=== PATIENT | male | born 1965 | race Caucasian/White ===

== ENCOUNTER 2018-01-30 14:59 | Outpatient (CLI) | payer OTHER | END 2018-01-30 15:00 | disposition home or self-care (01) | LOC: SC 14:59 | PROVIDERS: ATTEND Internal Medicine Pulmonary Disease | DX: G47.33 Obstructive sleep apnea (adult) (pediatric) (principal) | CPT/HCPCS: 99203; 99212 ==

== ENCOUNTER 2020-09-27 20:00 | Outpatient (CLI) | payer OTHER | END 2020-09-27 20:01 | disposition EMS.NT | LOC: EMS 20:00 | DX: S61.250A Open bite of right index finger without damage to nail, initial encounter (principal); Y04.2XXA Assault by strike against or bumped into by another person, initial encounter ==

== ENCOUNTER 2020-09-27 21:58 | Emergency (ER) | payer OTHER ==
[2020-09-27 22:21] VITALS: BP 207/100
--- OUTSIDE RECORDS SUMMARY | 2020-09-27 22:30 | EXTERNAL MEDICAL SUMMARY RPT | Continuity of Care Document ---
:1965 Demographics Phone Unavailable Preferred Language Unknown Marital Status Unknown Temple Affiliation Unknown Race Unknown Ethnic Group Unknown Author Organization [facility] Address [address] [place] [address] Phone Allergies Encounters Medications Problems Results
[2020-09-28] MEDS ORDERED: DOXYCYCLINE 100 MG TABLET PO STA (00:39)
[2020-09-28] MEDS ORDERED: metroNIDAZOLE 250 MG TABLET PO STA (00:39)
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
== END 2020-09-28 00:50 | disposition home or self-care (01) ==
LOC: ED 21:58
DX: S61.250A Open bite of right index finger without damage to nail, initial encounter (principal); Y04.1XXA Assault by human bite, initial encounter; Y93.89 Activity, other specified
CPT/HCPCS: 99282; 99283; A9270